=== PATIENT | male | born 1995 | race Caucasian/White ===

== ENCOUNTER 2022-11-22 08:00 | Outpatient (CLI) | payer OTHER ==
[2022-11-22 19:48] LABS: CHLAMYDIA TRACHOMATIS DNA NEGATIVE (NEGATIVE); NEISSERIA GONORRHOEAE DNA NEGATIVE (NEGATIVE); TRICHOMONAS VAGINALIS DNA NEGATIVE (NEGATIVE)
[2022-11-24 14:09] LABS: GIARDIA LAMBLIA AG EIA Negative (Negative)
== END 2022-11-22 23:59 | disposition home or self-care (01) ==
LOC: LAB.N 08:00
PROVIDERS: ATTEND Registered Nurse
DX: R19.7 Diarrhea, unspecified (principal); Z11.3 Encounter for screening for infections with a predominantly sexual mode of transmission
CPT/HCPCS: 87045; 87046; 87177; 87329; 87427; 87491; 87591; 87661

== ENCOUNTER 2022-11-24 08:00 | Outpatient (CLI) | payer OTHER | END 2022-11-24 23:59 | disposition home or self-care (01) | LOC: LAB.N 08:00 | PROVIDERS: ATTEND Registered Nurse | DX: R19.7 Diarrhea, unspecified (principal) | CPT/HCPCS: 87493 ==

== ENCOUNTER 2023-01-18 16:32 | Emergency (ER) | payer OTHER ==
[2023-01-18] MEDS ORDERED: LIDOCAINE 1% 2 ML VIAL MC ONE (16:58)
[2023-01-18] MEDS ORDERED: cefTRIAXone 500 MG VIAL IM STA (16:58)
[2023-01-18] MEDS ORDERED: DOXYCYCLINE 100 MG TABLET PO STA (16:58)
[2023-01-18 16:59] VITALS: BP 126/78; O2SAT 97
--- NOTE | 2023-01-18 17:03 | ED Physician Documentation ---
PD HPI MALE - Stated complaint Stated Complaint: - Chief complaint Chief Complaint: General - History obtained from History obtained from: Patient - Additional information Additional information: Patient is a 27-year-old male presenting for evaluation of penile discharge and dysuria that has been present since . [facility]. He was not notified of his symptoms throughout the weekend and attempted to get results today. He notified 2 sexual partners of his symptoms and 1 told that he had recently tested positive for chlamydia.Patient was still unable to get his [facility] and they stated he would need another appointment to get his results which could not be scheduled until the thus he has presented here. No fever, vomiting or diarrhea. States that the discharge is white. Denies testicular pain or swelling. Review of Systems Constitutional: denies: Fever GI: denies: Abdominal Pain, Vomiting : reports: Dysuria, Discharge PD PAST MEDICAL HISTORY - Present Medications Home Medications: Ambulatory Orders Medication Instructions Recorded Confirmed Doxycycline Hyclate 100 mg PO BID #14 tab 01/18/23 - Allergies Allergies/Adverse Reactions: Allergies Allergy/AdvReac Type Severity Reaction Status Date / Time oxycodone Allergy Hives Verified 01/18/23 16:51 PD ED PE NORMAL - General General: Alert and oriented X 3, No acute distress, Well developed/nourished - HEENT HEENT: Atraumatic - Neck Neck: Supple, no meningeal sign - Respiratory Respiratory: No respiratory distress - Abdomen Abdomen: Soft, Non tender - Neuro Neuro: Normal speech Results - Vitals Vitals: Vital Signs - 24 hr 01/18/23 16:46 Temperature 36.3 C L Heart Rate 70 Respiratory 18 Rate Blood Pressure 126/78 O2 Saturation 97 Oxygen O2 Source Room air - Labs Labs: Laboratory Tests 01/18/23 17:04 Urine Color YELLOW Urine Clarity CLOUDY Urine pH 7.5 Ur Specific Newell 1.015 Urine Protein TRACE Urine Glucose (UA) NEGATIVE Urine Ketones NEGATIVE Urine Occult Blood NEGATIVE Urine Nitrite NEGATIVE Urine Bilirubin NEGATIVE Urine Urobilinogen 2 H Ur Leukocyte Esterase NEGATIVE Urine RBC 0-5 Urine WBC 0-3 Ur Squamous Epith Cells NONE SEEN Amorphous Sediment Marked Urine Bacteria None Seen Ur Microscopic Review INDICATED Urine Culture Comments NOT INDICATED PD Medical Decision Making - ED course ED course: Patient with penile discharge and recent exposure to sexually transmitted infection. Urinalysis was obtained and gonorrhea chlamydia tests are pending. Given and known sexual partner with positive chlamydia we will treat with Rocephin and doxycycline. Patient counseled regarding treatment plan as well as to abstain from any sexual activity until completion of his Antibiotics. Patient counseled on concerning symptoms to return for. Departure - Departure Disposition: 01 Home, Self Care Clinical Impression: STD exposure, Penile discharge Condition: Stable Instructions: ED STD Male Treated Prescriptions: Doxycycline Hyclate 100 mg PO BID #14 tab Comments: Your symptoms today are concerning for sexually transmitted infection. We have sent your urine for testing but have also started you on treatment for gonorrhea and chlamydia. I have sent a prescription for an antibiotic for a 7-day course to [facility] in [place]. Please make sure to complete the course of the antibiotics. Do not engage in sexual activity until you complete the course of the antibiotic and ensure that your sexual partners have also been treated if already exposed. We will notify you of abnormal results. Please return to the emergency department if you develop any worsening symptoms. Forms: PCP List
[2023-01-18 17:22] LABS: BILIRUBIN,URINE NEGATIVE (NEGATIVE); GLUCOSE, URINE (UA) NEGATIVE (NEGATIVE); KETONES,URINE (UA) NEGATIVE (NEGATIVE); LEUKOCYTE ESTERASE, URINE NEGATIVE (NEGATIVE); NITRITE,URINE NEGATIVE (NEGATIVE); OCCULT BLOOD,URINE NEGATIVE (NEGATIVE); PH,URINE 7.5 PH (5.0-7.5); PROTEIN,URINE TRACE mg/dL (NEGATIVE); UROBILINOGEN,URINE 2 E.U./dL (NORMAL)
[2023-01-18 17:28] LABS: CLARITY,URINE CLOUDY (CLEAR)
[2023-01-18 17:30] LABS: AMORPHOUS SEDIMENT,UR Marked /LPF; BACTERIA,URINE None Seen /HPF (None Seen); RBC,URINE 0-5 /HPF (0-5); SQUAMOUS EPITHELIAL CELL,UR NONE SEEN (<= Few); WBC,URINE 0-3 /HPF (0-3)
[2023-01-18 22:36] LABS: NEISSERIA GONORRHOEAE DNA POSITIVE (NEGATIVE)
[2023-01-19 11:12] LABS: CHLAMYDIA TRACHOMATIS DNA NEGATIVE (NEGATIVE); TRICHOMONAS VAGINALIS DNA NEGATIVE (NEGATIVE)
== END 2023-01-18 18:32 | disposition home or self-care (01) ==
LOC: ED 16:32
DX: R36.9 Urethral discharge, unspecified (principal); Z20.2 Contact with and (suspected) exposure to infections with a predominantly sexual mode of transmission
CPT/HCPCS: 81001; 87491; 87591; 87661; 96372; 99283; A9270; 81003; 87086